=== PATIENT | female | born 1955 | race Caucasian/White ===

== ENCOUNTER → 2024-02-16 07:37 | Outpatient (REF) | payer MEDICARE, OTHER, SELFPAY | LOC: HWWDC 07:37 | PROVIDERS: ATTENDING PHYSICIAN Internal Medicine | DX: Z12.31 Encounter for screening mammogram for malignant neoplasm of breast (principal) | CPT/HCPCS: 77063; 77067 ==

== ENCOUNTER 2024-11-07 07:07 | Day surgery (SDC) | payer MEDICARE, OTHER, SELFPAY ==
--- NOTE | 2024-11-07 07:56 | ITS.CL.IMPLP ---
[employer] - Implant Loop
Implant Loop
Procedure Report:
Date of Procedure: November 07, 2024
Primary Care Provider: Dr Elizabet Wilson
Primary engineering model maker: Dr Shanti Swan
Procedure: Insertable Loop Recorder Implantation
Indication:
Atrial fibrillation
- PVI Oct 21, 2023
- No recurrences since November 16, 2023 as evidenced by symptoms as well as her Apple Watch
- [id number] score 3 (heart failure, age, female)
- She strongly wishes to stop oral anticoagulation and after discussing risks versus benefit she ultimately decided to have implantation of loop recorder for more robust rhythm assessment
- She will resume oral anticoagulation if atrial fibrillation is resumed
Procedure:
The patient was brought to the procedure area in a fasting state. The anterior chest was prepped and draped in standard sterile fashion. The fourth intercostal space along the left sternal border was identified and this area was anesthetized with 10
mL of 1% lidocaine. After gathering the skin in this area, a small punch incision was made at approx intercostal space 4-5 at left costo-sternal junction using the provided scalpel/punch tool. The loop recorder was loaded into the tunneling device.
A tunnel was created in the subcutaneous tissue at a 45� angle along the coronal plane away from the sternum and towards the left flank. The tunneling device was inverted and the plunger was depressed, inserting the loop recorder into the
subcutaneous space. The tunneling device was removed. Manual pressure provide hemostasis. Adequate signal was confirmed. The skin was closed with steri-strips. The estimated blood loss was < 1 cc. A clean dressing was placed over the wound.
There were no complications.
Implant:
[employer] Reveal LINQ II
Conclusion: Uncomplicated implantation of loop recorder.
Recommendation: Routine ILR care.
Copy:
Dr Elizabet Wilson
Dr Shanti Swan
== END 2024-11-07 08:00 | disposition home or self-care (01) ==
LOC: CATH 07:07
PROVIDERS: ATTENDING PHYSICIAN Internal Medicine Cardiovascular Disease; FAMILY PHYSICIAN Family Medicine
DX: Z09 Encounter for follow-up examination after completed treatment for conditions other than malignant neoplasm (principal); I48.91 Unspecified atrial fibrillation
CPT/HCPCS: 33285; C1764

== ENCOUNTER → 2025-02-22 09:21 | Outpatient (REF) | payer MEDICARE, OTHER, SELFPAY | LOC: HWWDC 09:21 | PROVIDERS: ATTENDING PHYSICIAN Family Medicine | DX: Z12.31 Encounter for screening mammogram for malignant neoplasm of breast (principal) | CPT/HCPCS: 77063; 77067 ==